=== PATIENT | female | born 1960 | race Caucasian/White ===

== ENCOUNTER 2016-10-27 18:08 | Emergency (ER) | payer BC ==
--- NOTE | 2016-10-28 01:01 | ER ---
ADMIT: 10/27/2016 RM/LOC: ER [facility] MR#: [id number] [address] [address] [address] [place] [address] Emergency Room Report SEX: F AGE: 56 : 1960 DATE: 10/27/2016 The patient is a 56-year-old female with admitted anxiety and palpitations, states since her mother recently of stroke, she is increasingly worried that she may have a stroke since her father also of stroke in the remote past. Exam remarkable for nontoxic, afebrile female. No focal deficit. Good carotid upstroke and volume without bruit. Palpitations noted on heart exam. EKG sinus rhythm without ST-T or Q-wave change. LVH changes are noted. CT head negative. Chest x-ray negative. Normal CBC and CMP except for potassium 3.5. Lactic 2.4. CRP 0.52. D-dimer 0.22. Troponin less than 0.015. TSH 0.906. The patient given Xanax 0.25 mg sublingual with marked improvement. Home with Xanax 0.25 mg t.i.d. p.r.n. #20. Outpatient carotid Doppler. Baby aspirin daily. Follow up Dr. Tristan this week. Jeovany Kam MD/ modl JOB #: [id number] CC: Lance Garcia MD, Attending Physician Chayo Tristan, Family Physician Chayo Tristan
== END 2016-10-27 20:43 | disposition home or self-care (01) ==
LOC: ER 18:08
DX: F41.9 Anxiety disorder, unspecified (principal); R00.2 Palpitations; Z88.5 Allergy status to narcotic agent; Z79.51 Long term (current) use of inhaled steroids

== ENCOUNTER → 2016-10-30 | Outpatient (CLI) | payer BC | END | disposition home or self-care (01) | LOC: RAD.S 15:22 | DX: R51 Headache (principal); R42 Dizziness and giddiness; R20.9 Unspecified disturbances of skin sensation; R41.3 Other amnesia; E23.6 Other disorders of pituitary gland ==